=== PATIENT | male | born 1990 | race African-American/Black ===

== ENCOUNTER 2020-08-13 10:37 | Emergency (ER) | payer BC ==
[~2020-08-13] VITALS: Ht 165.1 cm; Wt 65.8 kg
[~2020-08-13 10:37] MED LIST: NOHOMEMEDICATIONS
[2020-08-13] MEDS ORDERED: NAPROSYN500 M1 PO (10:43)
[2020-08-13] MEDS ORDERED: TIZANIDINE4 MG/1 TA1 PO (13:07)
[2020-08-13 13:15] VITALS: BP 122/84
[2020-08-13] MEDS ORDERED: NAPROSYN500 MG PO (13:28)
== END 2020-08-13 13:15 | disposition home or self-care (01) ==
LOC: ER 10:37
DX: S06.0X0A Concussion without loss of consciousness, initial encounter (principal); S40.012A Contusion of left shoulder, initial encounter; Z88.8 Allergy status to other drugs, medicaments and biological substances; V49.9XXA Car occupant (driver) (passenger) injured in unspecified traffic accident, initial encounter; Y93.89 Activity, other specified; Y92.89 Other specified places as the place of occurrence of the external cause; Y99.8 Other external cause status